=== PATIENT | female | born 1995 | race Caucasian/White ===

== ENCOUNTER 2018-08-15 10:51 | Outpatient (CLI) | payer OTHER ==
--- NOTE | 2018-08-15 17:09 | MRI ---
RIGHT KNEE MRI WITHOUT IV CONTRAST: Date: 08/15/18 HISTORY: internal derangement right knee, right knee pain for 2 weeks after an injury playing volleyball. TECHNIQUE: Multiplanar, multisequence MRI examination of the right knee is performed. FINDINGS: No abnormal joint effusion. Medial and lateral menisci appear unremarkable. Cruciate ligaments, colla teral ligaments, and quadriceps and patellar tendons are unremarkable. No abnormal marrow signal. No acute osteochondral defect. IMPRESSION: Unremarkable knee MRI. No evidence for significant acute internal derangement. POS: [facility]
== END 2018-08-15 10:52 | disposition home or self-care (01) ==
LOC: SCSMRI 10:51
PROVIDERS: ATTEND Orthopaedic Surgery
DX: M23.91 Unspecified internal derangement of right knee (principal)